=== PATIENT | female | born 1930 | race African-American/Black ===

== ENCOUNTER 2016-10-07 16:59 | Inpatient (IN) | payer MEDICARE, MEDICAID ==
[~2016-10-07] VITALS: Ht 154.9 cm; Wt 68.5 kg
[~2016-10-07 16:59] MED LIST: ACTOS15 MG PO; ALLOPURINOL300 MG PO; ASPIRIN EC81 MG PO; CELEBREX200 MG PO; CEPHALEXIN500 MG PO; COREG25 MG PO; COZAAR25 MG PO; CRESTOR10 MG PO; FERROUS SULF325 M2 PO; FOSAMAX70 MG PO; HYDROCHLORO25 MG/TAB PO; KEFLEX500 M1 PO; LASIX 40 MG40 MG/TAB PO; LIPITOR40 MG PO; METHIMAZOLE5 MG PO; METO50TA52 PO; MUCINEX600 MG PO; OXYBUTYNIN5 M1 PO; ROBITUSSIN200 MG/10 PO; SPIRONOLACTONE25 MG PO; SYNTHROID PO; ULTRAM50 M1 PO; VITAMIN B-12500 MCG PO; VITAMIN D31000 UNI1 PO; [UNRECOGNIZED DRUG - REMARK]
--- NOTE | 2016-10-07 17:12 | NUR ---
PT TO ROOM FOR TREATMENT VIA EMS
--- NOTE | 2016-10-07 18:11 | NUR ---
FAMILY AT BEDSIDE. PT W/HYPOTENSION W/ELEVATED HOB. PT SUPINE. IV SITE HEALTHY. AWAITING LAB RESULTS.
[2016-10-07 18:25] LABS: HEMATOCRIT 32.6 % (37.0-47.0); HEMOGLOBIN 10.1 g/dl (12.0-16.0); IMMATURE GRANULOCYTES 0.3 % (0.0-1.0); MEAN CELL VOLUME 97.3 fL CALC (80.0-100.0); MEAN CORPUSCULAR HGB 30.1 pG CALC (26.0-32.0); NEUT# 2.06 thou/uL (2.00-7.15); RED BLOOD COUNT 3.35 mill/uL (4.20-5.60); RED CELL DISTRI WIDTH 15.3 % (11.5-15.5)
[2016-10-07 18:43] LABS: PROTHROMBIN TIME 11.2 SECONDS (9.0-12.5)
[2016-10-07 18:46] LABS: ALBUMIN 3.5 g/dL (3.2-5.0); BILIRUBIN, TOTAL 0.7 mg/dL (0.0-1.4); CALCIUM 8.3 mg/dL (8.4-10.2); CREATININE 2.2 mg/dL (0.5-1.0); POTASSIUM 3.8 mmol/l (3.5-5.1); TOTAL PROTEIN 6.8 g/dL (6.3-8.2)
--- NOTE | 2016-10-07 18:50 | NUR ---
EMS IV OCCLUDED. REMOVED AND #22 STARTED IN RFA X 1 ATTEMPT. PT TOLERATED WELL.
--- NOTE | 2016-10-07 19:08 | NUR ---
REPORT PROVIDED TO RADHA RENTERIA. IV ABT INFUSING.
--- NOTE | 2016-10-07 19:10 | NUR ---
PT LAYING SUPINE IN BED. RESP EVEN AND UNLABORED. NO DISTRESS NOTED. DENIES PAIN/COMPLAINTS AT THIS TIME. PT A&O X 3. SKIN W/D. INFORMED PT AND FAMILY OF PLAN OF CARE AND CONTINUED WAIT TIME AND THEY VERBALIZED UNDERSTANDING. CALL LIGHT IN REACH.
--- NOTE | 2016-10-07 19:18 | NUR ---
PT CLEANED OF STOOL AND URINARY INCONTINENCE. STRAIGHT CATH'D FOR UA. PT TOLERATED WELL.
--- NOTE | 2016-10-07 19:22 | NUR ---
MD BEDSIDE TO DISCUSS RESULTS AND PLAN OF CARE W/ PT AND FAMILY.
[2016-10-07] MEDS ORDERED: FUROSEMIDE40 MG PO (19:23)
[2016-10-07] MEDS ORDERED: LOSARTAN POT25 MG PO (19:24)
[2016-10-07] MEDS ORDERED: METHIMAZOLE5 MG PO (19:27)
[2016-10-07 19:33] LABS: URINE BILIRUBIN - DIPSTICK NEGATIVE (NEGATIVE); URINE BLOOD DIPSTICK TRACE-INTACT (NEGATIVE); URINE CLARITY SLIGHT CLOUDY; URINE COLOR YELLOW; URINE GLUCOSE - DIPSTICK NEGATIVE (NEGATIVE); URINE KETONE NEGATIVE (NEGATIVE); URINE LEUK ESTERASE NEGATIVE (NEGATIVE); URINE NITRITE - DIPSTICK NEGATIVE (Negative); URINE PH 5.5 (4.5-8.0); URINE PROTEIN - DIPSTICK 100 mg/dL (NEG-TRACE); URINE SPECIFIC GRAVITY 1.015; URINE UROBILINOGEN - DIPSTICK 0.2 E.U./dL (0.2)
[2016-10-07 19:41] LABS: URINE AMORPH SEDIMENT MANY hpf (NONE-FEW); URINE RBC 0-2 RBC/hpf (0-5); URINE SQUAMOUS EPITHELIAL CELL FEW EPI/hpf (0-FEW); URINE WBC 0-2 WBC/hpf (0-5)
--- NOTE | 2016-10-07 20:20 | NUR ---
PT CONTINUES RESTING IN BED W/ NO CHANGE IN ASSESSMENT. NO DISTRESS. VSS. CALL LIGHT IN REACH.
--- NOTE | 2016-10-07 21:08 | NUR ---
REPORT CALLED TO Long SCHULTZ RN MEDSURG.
--- NOTE | 2016-10-07 21:20 | NUR ---
Admission Note Report Given to: Long SCHULTZ RN Transported by: Wheelchair X Stretcher Transported with: Nurse X Transporter X Patent IV O2 X Chemical Etching Processor
--- NOTE | 2016-10-07 21:20 | NUR ---
PT. ARRIVED TO THE FLOOR VIA STRETCHER ACCOMPANIED BY SCHOOL PHOTOGRAPHER, PT. TRANSFERRED OVER TO BED WITH STAFF ASSIST. DAUGHTER IS ALONG WITH PT. ASSESMENT COMPLETED, PT. HAS SMALL OPEN AREA NOTED TO LEFT INNER BUTTOCK, PHOTO OBTAINED AND TO BE PLACED IN CHART. PT AND FAMILY UPDATED WITH POC. ENCOURAGED TO CALL FOR ANY NEEDS. CALL LIGHT IS IN REACH.
[2016-10-07 21:42] VITALS: BP 126/60
--- NOTE | 2016-10-07 21:58 | NUR ---
DR. HIGGINBOTHAM CALL FOR PT'S REQUEST FOR MEDICATION FOR CONGESTION. ALSO NOTIFIED HIM OF INCREASE IN LAST LACTIC ACID AND OF PTS WBC BEING 3.8,AND THAT PATIENT ALREADY RECEIVED BOLUS IN ER. NEW ORDER RECIEVED FOR ANOTHER LACTIC ACID TO BE OBTAINED, WILL CARRY OUT.
--- NOTE | 2016-10-07 23:02 | NUR ---
PT. GIVEN A SANDWICH AND CRACKERS PER PTS REQUEST. DAUGHTER NOTIFIED OF HOME MEDICATION NEEDING TO BE BROUGHT IN, VERBALIZES UNDERSTANDING. CALL LIGHT IS IN REACH.
[2016-10-08] VITALS (7 sets, daily range): BP systolic 111–136; BP diastolic 54–76
--- NOTE | 2016-10-08 01:30 | NUR ---
PT. RESTING IN BED WITH NO DISTRESS NOTED. DENIES NEEDS/PAIN. ENCOURAGED TO CALL FOR ANY NEEDS. CALL LIGHT IS IN REACH.
--- NOTE | 2016-10-08 05:06 | NUR ---
PT. RESTING IN BED WITH DAUGHTER IN AT BEDSIDE, DENIES NEEDS. ENCOURAGED TO CALL FOR ANY NEEDS. CALL LIGHT IS IN REACH.
--- NOTE | 2016-10-08 08:00 | NUR ---
ASSESSMENT IS COMPLETED: PT HAS BEEN COUGHING WITH WHITE PHLEGMN. IV SITE IS FREE FROM REDNESS OR EDEMA. TELE MONITOR IN PLACE. FAMILY IN THE ROOM. CONTINUE TO OBSERVE AND MONITOR.
[2016-10-08 10:51] LABS: HEMOGLOBIN 9.6 g/dl (12.0-16.0); IMMATURE GRANULOCYTES 0.3 % (0.0-1.0); MEAN CELL VOLUME 96.6 fL CALC (80.0-100.0); MEAN CORPUSCULAR HGB 29.9 pG CALC (26.0-32.0); NEUT# 1.95 thou/uL (2.00-7.15); RED BLOOD COUNT 3.21 mill/uL (4.20-5.60); RED CELL DISTRI WIDTH 15.3 % (11.5-15.5)
[2016-10-08 11:19] LABS: CREATININE 1.8 mg/dL (0.5-1.0); POTASSIUM 3.4 mmol/l (3.5-5.1)
--- NOTE | 2016-10-08 13:00 | NUR ---
PT AMBULATED FROM THE BATHROOM BACK TO BED, WITH NO DISTRESS NOTED. IV SITE IS FREE FROM REDNESS OR EDMEA.
--- NOTE | 2016-10-08 16:00 | NUR ---
PT IS RELAXING IN THE CHAIR., NO DISTRESS NOTED. IV SITE IS FREE FROM REDNESS OR EDEMA.
--- NOTE | 2016-10-08 19:33 | NUR ---
PT. RESTING IN BED WITH NO DISTRESS NOTED. DENIES PAIN. ASSESSMENT COMPLETED. IV SITE PATENT AND ORDERED NS INFUSING @50ML/HR. PT. THEN ASSISTE TO THE BATHROOM WITH MINIMAL ASSISTANCE. GAIT SLOW AND STEADY. PT. THEN ASSSISTED BACK INTO BED. CALL LIGHT IS IN REACH. BED ALARM IN PLACE FOR SAFETY.
--- NOTE | 2016-10-08 20:37 | NUR ---
PT. RESTING IN BED WITH NO DISTRESS NOTED. DAUGHTER IN AT BEDSIDE TO STAY THE NIGHT WITH PT. SCHED MEDS GIVEN. PO FLUIDS OFFERED. DENIES NEEDS AND VOICES NO CONCERNS. CALL LIGHT IS IN REACH .WILL CONTINUE TO MONITOR.
--- NOTE | 2016-10-08 23:04 | NUR ---
PT. RESTING IN BED WITH NO DISTRESS NOTED. DENIES NEEDS. DAUGHTER REMAINS AT BEDSIDE. CALL LIGHT IS IN REACH.
[2016-10-09 05:10] VITALS: BP 152/60
--- NOTE | 2016-10-09 05:23 | NUR ---
PT. RESTING IN BED WITH NO DISTRESS NOTED. FRESH WATER AND JUICE PROVIDED. DAUGHTER REMAINS AT BEDSIDE. NEW BAG OF ORDERED IVF HUNG. ENCOURAGED TO CALL FOR ANY NEEDS. CALL LIGHT IS IN REACH.
[2016-10-09 05:50] LABS: HEMATOCRIT 33.4 % (37.0-47.0); HEMOGLOBIN 10.5 g/dl (12.0-16.0); IMMATURE GRANULOCYTES 0.2 % (0.0-1.0); MEAN CELL VOLUME 95.4 fL CALC (80.0-100.0); MEAN CORPUSCULAR HGB CONC 31.4 g/L CALC (32.0-36.0); NEUT# 2.47 thou/uL (2.00-7.15); RED BLOOD COUNT 3.5 mill/uL (4.20-5.60); RED CELL DISTRI WIDTH 15.2 % (11.5-15.5)
[2016-10-09 06:02] LABS: CALCIUM 8.7 mg/dL (8.4-10.2); CREATININE 1.4 mg/dL (0.5-1.0)
--- NOTE | 2016-10-09 06:20 | NUR ---
PT. UP AT THE END OF THE BED UPON ENTERING THE ROOM. PT. ASSISTED TO THE BSC AND UP TO THE RECLINER. PT. REMINDED TO USE THE CALL LIGHT FOR ASSISTANCE OOB. CALL LIGHT IN REACH AND BED ALARM PLACED FOR SAFETY PRECAUTIONS. WILL CONTINUE TO MONITOR.
--- NOTE | 2016-10-09 07:37 | NUR ---
PHILIPPE INFORMED PT GOT UP AND TOOK HER IV OUT AND TELE MONITOR IS OFF. SHE WILL CALL HER SISTER TO COME AND SIT WITH MOTHER.
[2016-10-09 07:50] VITALS: BP 142/71
--- NOTE | 2016-10-09 07:50 | NUR ---
ASSESSMENT IS COMPLETED: PT CONTINUES TO BE REDIRECTED TO GO BACK TO THE CHAIR. WANTING HER FAMILY TO COME AND GET HER TO TAKE HER HOME. PT TOOK IV AND TELE MONITOR OFF.
--- NOTE | 2016-10-09 08:43 | NUR ---
PT IS CRYING "LORD HELP ME PLEASE". ENCOURAGING PT TO SIT BACK IN THE CHAIR TO WAIT FOR HER DAUGHTER TO COME, INSISTING ON HER SHOES." NO SHOES IN THE ROOM.
--- NOTE | 2016-10-09 08:57 | NUR ---
PT INSISTING ON FINDING HER PERSONAL ITEMS: SHOES POCKET BOOK AND KEYS". INFORMED THAT HER FAMILY TOOK THEM HOME.
--- NOTE | 2016-10-09 09:05 | NUR ---
IN TO VISIT WITH PT WILL TALK WITH FAMILY WHEN THEY COME .
[2016-10-09 09:13] VITALS: BP 142/71
--- NOTE | 2016-10-09 12:15 | NUR ---
PT IS SITTING UP IN THE CHAIR WAITING FOR FAMILY
--- NOTE | 2016-10-09 13:50 | NUR ---
DISCHARGE INSTRUCTIONS GIVEN TO FAMILY., VERBALIZED UNDERSTANDING. IV SITE ALREADY REMOVED FROM PT. CONITNUE TO OBSERVE AND MONITOR.
--- NOTE | 2016-10-09 13:55 | NUR ---
Discharge instructions given. Patient verbalizes understanding of same. Discharged in stable condition via Wheelchair to Home with family. All belongings sent with pt.
== END 2016-10-09 13:45 | disposition home health service (06) | DRG 315 ==
LOC: ENPENDDIS → ED 16:59 → MS2 20:03 → ED-I 20:05 → ED 20:05 → MS2 10-09 13:45
PROVIDERS: Emergency Medicine; Internal Medicine; ADMIT Internal Medicine; ATTEND Internal Medicine
DX: I95.9 Hypotension, unspecified (principal); N17.9 Acute kidney failure, unspecified; E11.22 Type 2 diabetes mellitus with diabetic chronic kidney disease; E86.0 Dehydration; E05.90 Thyrotoxicosis, unspecified without thyrotoxic crisis or storm; I25.10 Atherosclerotic heart disease of native coronary artery without angina pectoris; E78.5 Hyperlipidemia, unspecified; I12.9 Hypertensive chronic kidney disease with stage 1 through stage 4 chronic kidney disease, or unspecified chronic kidney disease; N18.3 Chronic kidney disease, stage 3 (moderate); G31.84 Mild cognitive impairment of uncertain or unknown etiology

== ENCOUNTER 2017-08-06 16:12 | Observation (INO) | payer MEDICARE, MEDICAID ==
[~2017-08-06] VITALS: Ht 154.9 cm; Wt 75.9 kg
[~2017-08-06 16:12] MED LIST changes: +FUROSEMIDE40 MG PO; +LOSARTAN POT25 MG PO
--- NOTE | 2017-08-06 16:29 | NUR ---
to room 15 via ems stretcher, pt sitting up in bed, alert and talking with staff.
[2017-08-06 17:00] LABS: HEMATOCRIT 29.1 % (37.0-47.0); IMMATURE GRANULOCYTES 0.2 % (0.0-1.0); MEAN CORPUSCULAR HGB 30.6 pG CALC (26.0-32.0); MEAN CORPUSCULAR HGB CONC 30.9 g/L CALC (32.0-36.0); NEUT# 4.56 thou/uL (2.00-7.15); RED BLOOD COUNT 2.94 mill/uL (4.20-5.60); RED CELL DISTRI WIDTH 15.1 % (11.5-15.5)
[2017-08-06 17:04] LABS: ANION GAP 16 (6-22 (CALC)); BUN 39 mg/dL (8-23); BUN/CREATININE RATIO 24 (12-20 (CALC)); CARBON DIOXIDE 18 mmol/l (22-30); CHLORIDE 112 mmol/l (95-108); CREATININE 1.6 mg/dL (0.5-1.0); GFR 31 ML/MIN (>=60 (CALC)); GFR FOR AFR.AMER. 37 ML/MIN (>=60 (CALC)); POTASSIUM 3.9 mmol/l (3.5-5.1); SODIUM 142 mmol/l (137-146)
--- NOTE | 2017-08-06 17:10 | NUR ---
NS 1000cc bolus infusing from fluids brought in by EMS.
--- NOTE | 2017-08-06 17:15 | NUR ---
VS STABLE, IVF BOLUS INFUSING, CALL MILLER WITHIN REACH
--- NOTE | 2017-08-06 17:51 | NUR ---
IVF BOLUS COMPLETE, IV ACCESS FLUSHED W/O INCIDENT, FAMILY MEMBER AT BEDSIDE, CALL MILLER WITHIN REACH
[2017-08-06 18:09] LABS: URINE BILIRUBIN - DIPSTICK NEGATIVE (NEGATIVE); URINE BLOOD DIPSTICK NEGATIVE (NEGATIVE); URINE COLOR YELLOW; URINE GLUCOSE - DIPSTICK NEGATIVE (NEGATIVE); URINE KETONE NEGATIVE (NEGATIVE); URINE LEUK ESTERASE NEGATIVE (NEGATIVE); URINE NITRITE - DIPSTICK NEGATIVE (Negative); URINE PROTEIN - DIPSTICK TRACE mg/dL (NEG-TRACE); URINE SPECIFIC GRAVITY 1.015; URINE UROBILINOGEN - DIPSTICK 0.2 E.U./dL (0.2)
[2017-08-06 18:12] LABS: URINE CLARITY CLEAR
--- NOTE | 2017-08-06 18:51 | NUR ---
PT RESTING VS STABLE, FAMILY MEMBER AT BEDSIDE, CALL MILLER WITHIN REACH
--- NOTE | 2017-08-06 19:21 | NUR ---
RESTING QUIETLY. NO COMPLAINTS. NEURO INTACT.
[2017-08-06 21:00] VITALS: BP 138/61
--- NOTE | 2017-08-06 21:30 | NUR ---
PT SITTING UP IN BED WATCHING TV. PT IS ALERT AND ORIENTED X3. PERRLA. RESP ARE EVEN AND UNLABORED. NO DISTRESS NOTED. LUNGS ARE CLEAR. HR REGULAR. NO EDEMA NOTED. PULSES PALPABLE THROUGHOUT. BS ACTIVE. #20 IN RAC FOUND LAYING BESIDE PT IN BED. CATH TIP INTACT. #22 PLACED IN LAC X2 ATTEMPTS. PT TOLERATED WELL. WILL CONTINUE TO MONITOR
--- NOTE | 2017-08-07 | NUR ---
PT RESTING IN BED WITH EYES CLOSED. AROUSES EASILY TO VERBAL STIMULI. RESP ARE EVEN AND UNLABORED. NO DISTRESS NOTED. VOICES NO COMPLAINTS AT THIS TIME. WILL CONTINUE TO MONITOR. DAUGHTER IN ROOM
[2017-08-07 00:27] VITALS: BP 152/71
--- NOTE | 2017-08-07 04:04 | NUR ---
PT RESTING IN BED WITH EYES CLOSED. AROUSES EASILY TO VERBAL STIMULI. RESP ARE EVEN AND UNLABORED. NO DISTRESS NOTED. DAUGHTER IN ROOM. WILL CONTINUE TO MONITOR
[2017-08-07 04:20] VITALS: BP 120/67
[2017-08-07 07:07] LABS: HEMOGLOBIN 9.1 g/dl (12.0-16.0); MEAN CELL VOLUME 98.3 fL CALC (80.0-100.0); MEAN CORPUSCULAR HGB 30.8 pG CALC (26.0-32.0); MEAN CORPUSCULAR HGB CONC 31.4 g/L CALC (32.0-36.0); RED BLOOD COUNT 2.95 mill/uL (4.20-5.60); RED CELL DISTRI WIDTH 15.1 % (11.5-15.5)
--- NOTE | 2017-08-07 07:13 | NUR ---
ASSISTED PT TO THE COMMODE AND INTO THE RECLINER, CALL LIGHT IN REACH.
[2017-08-07 07:20] VITALS: BP 141/70
[2017-08-07 07:20] LABS: CHOLESTEROL HDL RATIO 2.8 (<4.4 (CALC)); CREATININE 1.5 mg/dL (0.5-1.0); POTASSIUM 4.1 mmol/l (3.5-5.1)
[2017-08-07 09:27] LABS: BARBITURATES NEGATIVE (NEGATIVE); COCAINE NEGATIVE (NEGATIVE); METHADONE NEGATIVE (NEGATIVE); OXCYCODONE NEGATIVE (NEGATIVE); TETRAHYDROCANNABIONOL NEGATIVE (NEGATIVE); TRICYLIC ANTIDEPRESSANTS NEGATIVE (NEGATIVE)
--- NOTE | 2017-08-07 11:01 | NUR ---
PT.UPRIGHT IN RECLINER WITH TV ON AND A SMILE TO GREET ME WHEN I WALKED IN THE DOOR. PT.DENIES PAIN/N/V AT THIS TIME. SHE REPORTS BM THIS AM AND NO BURNING OR DIFFICULTY URINATING. PT. DID ASK "WHEN AM I GETTING OUT OF HERE?" pT.IS LOC TO SELF//LOCATION, BUT CONFUSED WHEN ASKED YEAR AND PRESIDENT. PT.MEDICATED WITH AM MEDICATIONS ORDERED AND REORIENTED TO CALL LIGHT.
[2017-08-07 11:23] VITALS: BP 153/64
[2017-08-07 15:11] VITALS: BP 122/64
== END 2017-08-07 16:20 | disposition home or self-care (01) ==
LOC: ED 16:12 → ED-I 16:51 → ED 18:52 → MS2 18:53
PROVIDERS: Family Medicine; ADMIT Internal Medicine; ATTEND Internal Medicine
PROC: 0T9B70Z Drainage of Bladder with Drainage Device, Via Natural or Artificial Opening (ICD-10-PCS; principal; 2017-08-06)
DX: R55 Syncope and collapse (principal); I13.0 Hypertensive heart and chronic kidney disease with heart failure and stage 1 through stage 4 chronic kidney disease, or unspecified chronic kidney disease; N18.3 Chronic kidney disease, stage 3 (moderate); I50.9 Heart failure, unspecified; E78.5 Hyperlipidemia, unspecified; E05.90 Thyrotoxicosis, unspecified without thyrotoxic crisis or storm; G31.84 Mild cognitive impairment of uncertain or unknown etiology; R00.1 Bradycardia, unspecified

== ENCOUNTER 2018-02-09 15:13 | Observation (INO) | payer MEDICARE, MEDICAID ==
[~2018-02-09] VITALS: Ht 154.9 cm; Wt 70.0 kg
--- NOTE | 2018-02-09 15:21 | NUR ---
PATIENT TO ROOM VIA WHEELCHAIR AND PHYSICIAN NOTIFIED OF PATIENT STATUS
--- NOTE | 2018-02-09 15:35 | NUR ---
PATIENT ALERT AND ORINETED TO SELF AND PLACE. REPORTS CHEST PAIN X1 DAY, STATES PAIN REACHED 6/10 ON PAIN SCALE INTERMITTANT. DENIES ANY CURRENT CHEST PAIN OR SOB. +1 EDEMA NOTED TO BILATERAL LOWER EXTERMITIES. PATIENT INFORMED OF PLAN OF CARE VERBAL UNDERSTANDING. DAUGHTER AT BEDSIDE.
[2018-02-09 15:41] LABS: HEMATOCRIT 33.4 % (37.0-47.0); HEMOGLOBIN 10.5 g/dl (12.0-16.0); IMMATURE GRANULOCYTES 0.4 % (0.0-5.0); MEAN CELL VOLUME 98.2 fL CALC (80.0-100.0); MEAN CORPUSCULAR HGB 30.9 pG CALC (26.0-32.0); MEAN CORPUSCULAR HGB CONC 31.4 g/L CALC (32.0-36.0); NEUT# 4.16 thou/uL (2.00-7.15); RED BLOOD COUNT 3.4 mill/uL (4.20-5.60)
[2018-02-09 15:59] LABS: ALBUMIN 3.8 g/dL (3.2-5.0); ALKALINE PHOSPHATASE 86 u/l (38-126); ANION GAP 18 (6-22 (CALC)); BILIRUBIN, TOTAL 0.5 mg/dL (0.0-1.4); BUN 50 mg/dL (8-23); BUN/CREATININE RATIO 24 (12-20 (CALC)); CARBON DIOXIDE 20 mmol/l (22-30); CHLORIDE 109 mmol/l (95-108); CREATININE 2.1 mg/dL (0.5-1.0); GFR 22 ML/MIN (>=60 (CALC)); GFR FOR AFR.AMER. 27 ML/MIN (>=60 (CALC)); SGOT/AST 23 u/l (9-36); SGPT/ALT 31 u/l (11-66); SODIUM 142 mmol/l (137-146)
[2018-02-09 16:00] LABS: POTASSIUM 5.1 mmol/l (3.5-5.1)
[2018-02-09 16:11] LABS: MYOGLOBIN 72 ng/mL (0 - 62)
--- NOTE | 2018-02-09 16:35 | NUR ---
LUNG SOUNDS CLEAR BILATERALLY.
--- NOTE | 2018-02-09 17:00 | NUR ---
PATIENT REPORTS NO CHEST PAIN AT THIS TIME. INFORMED OF URINE SAMPLE NEEDED, PLACED ON BEDPAN. CALL LIGHT GIVEN AND INFORMED TO CALL FOR ASSISTANCE OF BEDPAN, DAUGHTER AT BEDSIDE.
--- NOTE | 2018-02-09 17:20 | NUR ---
PATIENT CONTINUE TO BE ON BEDPAN, REQUEST TO HAVE MORE TIME ON BEDPAN BY PATIENT. WILL CONTIUE TO MONITOR.
--- NOTE | 2018-02-09 18:00 | NUR ---
AT BEDSIDE TO DISCUSS RESULTS WITH PATIENT. URINE OBTAINED VIA STRAIGHT CATH, PATIENT TOLERATED WELL.
--- NOTE | 2018-02-09 18:16 | NUR ---
REPORT CALLED TO CIERRA HUMPHRIES. WAITING ON FLOOR ORDERS.
[2018-02-09 18:22] LABS: URINE BILIRUBIN - DIPSTICK NEGATIVE (NEGATIVE); URINE BLOOD DIPSTICK NEGATIVE (NEGATIVE); URINE COLOR YELLOW; URINE GLUCOSE - DIPSTICK NEGATIVE (NEGATIVE); URINE KETONE NEGATIVE (NEGATIVE); URINE LEUK ESTERASE NEGATIVE (NEGATIVE); URINE NITRITE - DIPSTICK NEGATIVE (Negative); URINE PROTEIN - DIPSTICK NEGATIVE (NEG-TRACE); URINE SPECIFIC GRAVITY <=1.005; URINE UROBILINOGEN - DIPSTICK 0.2 E.U./dL (0.2)
[2018-02-09 18:24] LABS: URINE CLARITY CLEAR
--- NOTE | 2018-02-09 18:45 | NUR ---
PATIENT TRANSPORTED TO [facility] VIA STRETCHER WITH TELE IN PLACE. CIERRA HUMPHRIES AND RADHA SUMMERS INFORMED OF PATIENT ARRIVAL TO UNIT. CARE RELINQUISHED.
--- NOTE | 2018-02-09 18:50 | NUR ---
PT ARRIVED TO FLOOR VIA STRETCHER ACCOMPANIED BY ED NURSE. PT APPEARS TO BE IN STABLE CONDITION. DENIES ANY PAIN OR SOB AT THIS TIME. PT ORIENTED TO ROOM,CALL SYSTEM,LIGHTS, AND BED AT THIS TIME.
--- NOTE | 2018-02-09 19:48 | NUR ---
PT ASSESSED AND V/S OBTAINED. LUNG SOUNDS ARE CLEAR, PT HAS DRY HACKING NON-PRODUCTIVE COUGH. ABD IS SOFT NON-TENDER, EDEMA+1 TO LOWER EXT BILAT, LOC TO SELF, AND LOCATION. DOES NOT REMEMBER HEALTH HISTORY OR WHY SHE IS HERE. I REORIENTED PT TO CALL LIGHT MULTIPLE TIMES WHILE ASSESSING AND COMPLETING ADMISSION. BED ALARM PLACED DUE TO FORGETFULLNESS. I WILL CONTINUE TO MONITOR AND OBSERVE FOR NEED TO MOVE TO A CLOSER LOCATION.
[2018-02-09 19:52] VITALS: BP 144/72
--- NOTE | 2018-02-09 21:00 | NUR ---
PT IS ATTEMPTING TO CALL HER DAUGHTER, I ASSISTED HER TO USE THE PHONE. SHE WAS UNABLE TO GET THROUGH TO DAUGHTER. NO S/S OF DISTRESS NOTED. PT DENIES ANY PAIN/N/V/SOB AT THIS TIME. ASSISTED PT TO BSC AND BACK TO BED. BED ALARM PLACED FOR FORGETFULLNESS.
[2018-02-10 00:02] VITALS: BP 150/73
--- NOTE | 2018-02-10 00:05 | NUR ---
PT SET BED ALARM OFF, SHE WAS ATTEMPTING TO GET UP ON HER OWN TO BSC. PT REQUIRED 1X ASSISTANCE GETTING OUT OF BED AND IS VERY WEAK ON HER FEET. PT ASSISTED BACK TO BED AND REMINDED OF CALL LIGHT PLACED ON BSTABLE. BED ALARM ON PT. 300CC OF CLEAR YELLOW URINE EMPTIED FROM BSC.
--- NOTE | 2018-02-10 03:55 | NUR ---
PT APPEARS TO BE SLEEPING AT THIS TIME. NO S/S OF DISTRESS NOTED. CALL LIGHT AT BEDSIDE AND BED ALARM IN PLACE.
[2018-02-10 04:15] VITALS: BP 106/72
[2018-02-10 05:04] LABS: HEMATOCRIT 30.2 % (37.0-47.0); HEMOGLOBIN 9.5 g/dl (12.0-16.0); MEAN CELL VOLUME 96.8 fL CALC (80.0-100.0); MEAN CORPUSCULAR HGB 30.4 pG CALC (26.0-32.0); MEAN CORPUSCULAR HGB CONC 31.5 g/L CALC (32.0-36.0); RED BLOOD COUNT 3.12 mill/uL (4.20-5.60); RED CELL DISTRI WIDTH 14.7 % (11.5-15.5)
[2018-02-10 05:11] LABS: CREATININE 1.6 mg/dL (0.5-1.0); POTASSIUM 4.6 mmol/l (3.5-5.1)
--- NOTE | 2018-02-10 07:05 | NUR ---
REPORT RECEIVED FROM RADHA SUMMERS;PT APPEARS TO BE SLEEPING IN LEFT SIDE LAYING POSITION;RESPIRATIONS APPEAR EVEN AND UNLABORED ON RA;NO S/S OF DISTRESS NOTED;IV SITE PATENT INFUSING NS @ 100ML/HR;FALL PRECAUTIONS IN PLACE WITH BED IN THE LOWEST POSITION AND BED ALARM ON FOR PATIENT SAFETY;CALL LIGHT IN REACH;WILL CONTINUE TO MONITOR
[2018-02-10 08:14] VITALS: BP 127/75
--- NOTE | 2018-02-10 08:15 | NUR ---
PT OOB RESTING IN RECLINER;ALERT AND ORIENTED X3 WITH SLIGHT FORGETFULNESS NOTED,WILL RE-ORIENT ACCORDINGLY;VS OBTAINED AND ASSESSMENT COMPLETED;PT DENIES ANY CURRENT PAIN,PAIN SCALE AND REPORTING EDUCATED;PT EXPRESSES DESIRE TO GO HOME,PT POC DISCUSSED AND PT VERBALIZES UNDERSTANDING;RESPIRATIONS EVEN AND UNLABORED ON RA,CLEAR LUNG SOUNDS NOTED;ABDOMEN SOFT ON PALPATION AND ACTIVE IN ALL 4 QUADRANTS;WEAK PEDAL PULSES,+1 EDEMA NOTED TO BILATERAL ANKLES;ENCOURAGED ELEVATION;TELE MONITOR IN PLACE;#20G TO LEFT FOREARM INFUSING NS @ 100ML/HR WITH EASE,SITE APPEARS HEALTHY;PO FLUIDS ENCOURAGED;PT DENIES ANY ADDITIONAL NEEDS AT THIS TIME;ENCOURAGED TO CALL FOR ASSISTANCE IF NEEDED;FALL PRECAUTIONS IN PLACE WITH BED ALARM ON FOR PT SAFETY;CALL LIGHT IN REACH;WILL CONTINUE TO MONITOR
[2018-02-10 10:30] VITALS: BP 130/59
--- NOTE | 2018-02-10 11:30 | NUR ---
PT OOB RESTING IN RECLINER WITH FAMILY AT BEDSIDE;PT DENIES ANY CURRENT PAIN OR NEEDS;RESPIRATIONS EVEN AND UNLABORED ON RA;IV SITE TO LEFT FOREARM PATENT AND INFUSING NS WITH EASE;PT ASSISTED TO BEDSIDE COMMODE WITH 2 PERSON ASSIST;PT ENCOURAGED TO CALL FOR ASSISTANCE WHEN NEEDED;FALL PRECAUTIONS IN PLACE WITH BED ALARM ON FOR SAFETY CALL LIGHT IN REACH;WILL CONTINUE TO MONITOR
--- NOTE | 2018-02-10 13:26 | NUR ---
ALL DISCHARGE INFORMATION PROVIDED AT THIS TIME AND DISCUSSED WITH PT AND FAMILY MEMBER;PT DENIES ANY CURRENT NEEDS OR QUESTIONS;IV SITE REMOVED WITH CATHETER INTACT;WHEELCHAIR TO BE PROVIDED FOR DISCHARGE.
--- NOTE | 2018-02-10 13:46 | NUR ---
Discharge instructions given. Patient verbalizes understanding of same. Discharged in stable condition via Wheelchair to Home with family. All belongings sent with pt.
== END 2018-02-10 13:48 | disposition home health service (06) ==
LOC: ED 15:13 → ED-I 16:04 → ED 16:04 → ED-I 17:50 → ED 18:09 → MS2 18:10
PROVIDERS: Emergency Medicine; ADMIT Internal Medicine; ATTEND Internal Medicine
DX: N17.9 Acute kidney failure, unspecified (principal); E86.0 Dehydration; T50.2X5A Adverse effect of carbonic-anhydrase inhibitors, benzothiadiazides and other diuretics, initial encounter; I13.0 Hypertensive heart and chronic kidney disease with heart failure and stage 1 through stage 4 chronic kidney disease, or unspecified chronic kidney disease; I50.9 Heart failure, unspecified; N18.3 Chronic kidney disease, stage 3 (moderate); E78.5 Hyperlipidemia, unspecified; I25.10 Atherosclerotic heart disease of native coronary artery without angina pectoris; E05.90 Thyrotoxicosis, unspecified without thyrotoxic crisis or storm; G31.84 Mild cognitive impairment of uncertain or unknown etiology; R07.89 Other chest pain; R06.02 Shortness of breath

== ENCOUNTER 2018-03-18 16:10 | Emergency (ER) | payer MEDICARE, MEDICAID ==
[~2018-03-18] VITALS: Ht 154.9 cm; Wt 73.0 kg
[2018-03-18] MEDS ORDERED: MOTRIN400 MG PO (17:17)
[2018-03-18] MEDS ORDERED: VOLTAREN1%GEL TOP (17:17)
[2018-03-18] MEDS ORDERED: ASPERCREME LIDOCA41 TOP (17:17)
[2018-03-18 17:26] VITALS: BP 147/65
== END 2018-03-18 17:33 | disposition home or self-care (01) ==
LOC: ED 16:10
DX: S76.012A Strain of muscle, fascia and tendon of left hip, initial encounter (principal); I11.0 Hypertensive heart disease with heart failure; I50.9 Heart failure, unspecified; I25.10 Atherosclerotic heart disease of native coronary artery without angina pectoris; E78.5 Hyperlipidemia, unspecified; X58.XXXA Exposure to other specified factors, initial encounter

== ENCOUNTER → 2018-09-01 | Outpatient (REF) | payer MEDICARE ==
[~2018-09-01] MED LIST changes: +ALLOPURINOL100 MG PO; +AMOXICILLIN500 MG PO; +ASPERCREME LIDOCA41 TOP; -ASPIRIN EC81 MG PO; +ATORVASTATIN CA20 MG PO; +BAYER ASPIRIN E81 MG PO; +DITROPAN PO; +GABAPENTIN100 MG PO; +IPRATROPIUM BR0.02 % IN; +KLOR-CON 1010 MEQ PO; +MOTRIN400 MG PO; +SODIUM BICAR650 MG PO; +TESSALON PERLE100 MG PO; +VOLTAREN1%GEL TOP
== END | disposition home or self-care (01) ==
LOC: MAMMO 12:38
PROVIDERS: ATTEND Internal Medicine
DX: N63.21 Unspecified lump in the left breast, upper outer quadrant (principal)

== ENCOUNTER 2018-09-02 16:10 | Emergency (ER) | payer MEDICARE ==
[~2018-09-02] VITALS: Ht 154.9 cm; Wt 90.0 kg
[~2018-09-02 16:10] MED LIST changes: -ALLOPURINOL100 MG PO; -AMOXICILLIN500 MG PO; -ATORVASTATIN CA20 MG PO; -DITROPAN PO; -GABAPENTIN100 MG PO; -IPRATROPIUM BR0.02 % IN; -KLOR-CON 1010 MEQ PO; -SODIUM BICAR650 MG PO; -TESSALON PERLE100 MG PO
[2018-09-02] MEDS ORDERED: GABAPENTIN100 MG PO (17:36)
[2018-09-02] MEDS ORDERED: ATORVASTATIN CA20 MG PO (17:37)
[2018-09-02] MEDS ORDERED: ALLOPURINOL100 MG PO (17:37)
[2018-09-02] MEDS ORDERED: KLOR-CON 1010 MEQ PO (17:38)
[2018-09-02] MEDS ORDERED: DITROPAN PO (17:39)
[2018-09-02] MEDS ORDERED: SODIUM BICAR650 MG PO (17:39)
[2018-09-02 17:45] VITALS: BP 139/69
== END 2018-09-02 17:45 | disposition home or self-care (01) ==
LOC: ED 16:10
DX: M15.0 Primary generalized (osteo)arthritis (principal); I11.0 Hypertensive heart disease with heart failure; I50.9 Heart failure, unspecified; I25.10 Atherosclerotic heart disease of native coronary artery without angina pectoris; E78.5 Hyperlipidemia, unspecified

== ENCOUNTER 2018-09-18 11:40 | Emergency (ER) | payer MEDICARE ==
[~2018-09-18] VITALS: Ht 154.9 cm; Wt 90.0 kg
[~2018-09-18 11:40] MED LIST changes: +ALLOPURINOL100 MG PO; +ATORVASTATIN CA20 MG PO; +DITROPAN PO; +GABAPENTIN100 MG PO; +KLOR-CON 1010 MEQ PO; +SODIUM BICAR650 MG PO
[2018-09-18 12:22] LABS: HEMOGLOBIN 9.7 g/dl (12.0-16.0); IMMATURE GRANULOCYTES 0.1 % (0.0-5.0); MEAN CELL VOLUME 101.6 fL CALC (80.0-100.0); MEAN CORPUSCULAR HGB 30.8 pG CALC (26.0-32.0); MEAN CORPUSCULAR HGB CONC 30.3 g/L CALC (32.0-36.0); NEUT# 5.42 thou/uL (2.00-7.15); RED BLOOD COUNT 3.15 mill/uL (4.20-5.60); RED CELL DISTRI WIDTH 15.1 % (11.5-15.5)
[2018-09-18 12:41] LABS: ALBUMIN 4.1 g/dL (3.2-5.0); BILIRUBIN, TOTAL 0.8 mg/dL (0.0-1.4); CREATININE 1.8 mg/dL (0.5-1.0); POTASSIUM 3.9 mmol/l (3.5-5.1); TOTAL PROTEIN 7.3 g/dL (6.3-8.2)
[2018-09-18 13:50] LABS: URINE BILIRUBIN - DIPSTICK NEGATIVE (NEGATIVE); URINE BLOOD DIPSTICK NEGATIVE (NEGATIVE); URINE COLOR YELLOW; URINE GLUCOSE - DIPSTICK NEGATIVE (NEGATIVE); URINE KETONE NEGATIVE (NEGATIVE); URINE LEUK ESTERASE NEGATIVE (NEGATIVE); URINE NITRITE - DIPSTICK NEGATIVE (Negative); URINE PROTEIN - DIPSTICK NEGATIVE (NEG-TRACE); URINE UROBILINOGEN - DIPSTICK 0.2 E.U./dL (0.2)
[2018-09-18 14:11] VITALS: BP 167/76
== END 2018-09-18 14:11 | disposition home or self-care (01) ==
LOC: ED 11:40
DX: R53.1 Weakness (principal); R51 Headache; I11.0 Hypertensive heart disease with heart failure; I50.9 Heart failure, unspecified; I25.10 Atherosclerotic heart disease of native coronary artery without angina pectoris

== ENCOUNTER 2018-09-29 13:03 | Emergency (ER) | payer MEDICARE ==
[~2018-09-29] VITALS: Ht 154.9 cm; Wt 80.0 kg
[2018-09-29] MEDS ORDERED: AMOXICILLIN500 MG PO (14:11)
[2018-09-29 15:03] VITALS: BP 134/77
== END 2018-09-29 15:03 | disposition home or self-care (01) ==
LOC: ED 13:03
DX: J06.9 Acute upper respiratory infection, unspecified (principal); I11.0 Hypertensive heart disease with heart failure; I50.9 Heart failure, unspecified; I25.10 Atherosclerotic heart disease of native coronary artery without angina pectoris

== ENCOUNTER 2018-10-01 15:43 | Emergency (ER) | payer MEDICARE ==
[~2018-10-01] VITALS: Ht 154.9 cm; Wt 75.0 kg
[~2018-10-01 15:43] MED LIST changes: +AMOXICILLIN500 MG PO
[2018-10-01] MEDS ORDERED: IPRATROPIUM BR0.02 % IN (16:42)
[2018-10-01] MEDS ORDERED: TESSALON PERLE100 MG PO (18:19)
[2018-10-01 18:25] VITALS: BP 101/59
== END 2018-10-01 18:27 | disposition home or self-care (01) ==
LOC: ED 15:43
DX: R05 Cough (principal); I10 Essential (primary) hypertension; I25.10 Atherosclerotic heart disease of native coronary artery without angina pectoris

== ENCOUNTER 2019-08-31 | Emergency (ER) | payer MEDICARE ==
[~2019-08-31] MED LIST changes: +CARVEDILOL25 MG PO; -DITROPAN PO; +DITROPAN5 MG/TA1 PO; -FUROSEMIDE40 MG PO; +IPRATROPIUM BR0.02 % IN; +LASIX 40 MG TAB40 MG PO; +TESSALON PERLE100 MG PO; +TRAMADOL HCL50 MG PO
== END 2019-08-31 18:57 | disposition home or self-care (01) ==
DX: M17.11 Unilateral primary osteoarthritis, right knee (principal); R05 Cough; I11.0 Hypertensive heart disease with heart failure; I50.9 Heart failure, unspecified; I25.10 Atherosclerotic heart disease of native coronary artery without angina pectoris

== ENCOUNTER 2019-09-21 | Emergency (ER) | payer MEDICARE ==
[2019-09-21 14:07] LABS: HEMATOCRIT 34.8 % (37.0-47.0); HEMOGLOBIN 10.9 g/dl (12.0-16.0); IMMATURE GRANULOCYTES 0.3 % (0.0-5.0); MEAN CELL VOLUME 99.4 fL CALC (80.0-100.0); MEAN CORPUSCULAR HGB 31.1 pG CALC (26.0-32.0); MEAN CORPUSCULAR HGB CONC 31.3 g/dL CAL (32.0-36.0); NEUT# 4.19 thou/uL (2.00-7.15); RED BLOOD COUNT 3.5 mill/uL (4.20-5.60); RED CELL DISTRI WIDTH 15.2 % (11.5-15.5)
[2019-09-21 14:09] LABS: ALBUMIN 3.9 g/dL (3.2-5.0); ALKALINE PHOSPHATASE 94 u/l (38-126); ANION GAP 12 (6-22 (CALC)); BILIRUBIN, TOTAL 0.7 mg/dL (0.0-1.4); BUN 32 mg/dL (8-23); BUN/CREATININE RATIO 19 (12-20 (CALC)); CARBON DIOXIDE 23 mmol/l (22-30); CHLORIDE 107 mmol/l (95-108); CREATININE 1.6 mg/dL (0.5-1.0); GFR 31 ML/MIN (>=60 (CALC)); GFR FOR AFR.AMER. 37 ML/MIN (>=60 (CALC)); POTASSIUM 4.2 mmol/l (3.5-5.1); SGOT/AST 32 u/l (9-36); SODIUM 138 mmol/l (137-146); TOTAL PROTEIN 7.1 g/dL (6.3-8.2)
[2019-09-21] MEDS ORDERED: FERR SULFATE325 MG PO (15:11)
[2019-09-21] MEDS ORDERED: DULCOLAX10 MG RE (15:14)
[2019-09-21] MEDS ORDERED: SENNA-TABS8.6 MG PO (15:14)
[2019-09-21] MEDS ORDERED: IPRATROPIUM BR0.02 % IN (15:16)
[2019-09-21 16:02] LABS: URINE BILIRUBIN - DIPSTICK NEGATIVE (NEGATIVE); URINE BLOOD DIPSTICK TRACE-INTACT (NEGATIVE); URINE COLOR YELLOW; URINE GLUCOSE - DIPSTICK NEGATIVE (NEGATIVE); URINE KETONE NEGATIVE (NEGATIVE); URINE LEUK ESTERASE NEGATIVE (NEGATIVE); URINE NITRITE - DIPSTICK NEGATIVE (Negative); URINE PH 6.5 (4.5-8.0); URINE PROTEIN - DIPSTICK NEGATIVE (NEG-TRACE); URINE SPECIFIC GRAVITY 1.015; URINE UROBILINOGEN - DIPSTICK 0.2 E.U./dL (0.2)
== END 2019-09-21 17:02 | disposition home or self-care (01) ==
PROVIDERS: Family Medicine
DX: R55 Syncope and collapse (principal); I11.0 Hypertensive heart disease with heart failure; I50.9 Heart failure, unspecified; I25.10 Atherosclerotic heart disease of native coronary artery without angina pectoris

== ENCOUNTER 2019-12-11 10:05 | Emergency (ER) | payer MEDICARE ==
[~2019-12-11 10:05] MED LIST changes: +DULCOLAX10 MG RE; +FERR SULFATE325 MG PO; +SENNA-TABS8.6 MG PO
[2019-12-11 12:38] VITALS: BP 168/73
== END 2019-12-11 12:03 | disposition home or self-care (01) ==
LOC: ED 10:05
DX: U07.1 COVID-19 (principal); I11.0 Hypertensive heart disease with heart failure; I50.9 Heart failure, unspecified; I25.10 Atherosclerotic heart disease of native coronary artery without angina pectoris

== ENCOUNTER 2021-05-15 20:45 | Emergency (ER) | payer MEDICARE ==
[~2021-05-15] VITALS: Ht 162.6 cm; Wt 81.0 kg
[2021-05-15 21:32] LABS: HEMATOCRIT 36.7 % (37.0-47.0); HEMOGLOBIN 11.4 g/dl (12.0-16.0); IMMATURE GRANULOCYTES 0.2 % (0.0-5.0); MEAN CELL VOLUME 97.3 fL CALC (80.0-100.0); MEAN CORPUSCULAR HGB 30.2 pG CALC (26.0-32.0); MEAN CORPUSCULAR HGB CONC 31.1 g/dL CAL (32.0-36.0); NEUT# 3.87 thou/uL (2.00-7.15); RED BLOOD COUNT 3.77 mill/uL (4.20-5.60)
[2021-05-15 21:41] LABS: ALBUMIN 4.1 g/dL (3.2-5.0); ALKALINE PHOSPHATASE 89 u/l (38-126); ANION GAP 13 (6-22 (CALC)); BILIRUBIN, TOTAL 0.8 mg/dL (0.0-1.4); BUN 29 mg/dL (8-23); BUN/CREATININE RATIO 13 (12-20 (CALC)); CARBON DIOXIDE 24 mmol/l (22-30); CHLORIDE 105 mmol/l (95-108); CREATININE 2.1 mg/dL (0.5-1.0); GFR 22 ML/MIN (>=60 (CALC)); GFR FOR AFR.AMER. 27 ML/MIN (>=60 (CALC)); SGOT/AST 34 u/l (9-36); SODIUM 137 mmol/l (137-146); TOTAL PROTEIN 7.6 g/dL (6.3-8.2)
[2021-05-15 21:44] LABS: POTASSIUM 5.3 mmol/l (3.5-5.1)
[2021-05-15 21:51] LABS: MYOGLOBIN 70 ng/mL (0 - 62)
[2021-05-15 22:59] LABS: URINE BILIRUBIN - DIPSTICK NEGATIVE (NEGATIVE); URINE BLOOD DIPSTICK SMALL (NEGATIVE); URINE COLOR YELLOW; URINE GLUCOSE - DIPSTICK NEGATIVE (NEGATIVE); URINE KETONE NEGATIVE (NEGATIVE); URINE LEUK ESTERASE NEGATIVE (NEGATIVE); URINE PH 6.5 (4.5-8.0); URINE PROTEIN - DIPSTICK 30 mg/dL (NEG-TRACE); URINE UROBILINOGEN - DIPSTICK 0.2 E.U./dL (0.2)
[2021-05-15 23:03] LABS: URINE NITRITE - DIPSTICK NEGATIVE (Negative)
[2021-05-15 23:04] LABS: URINE SQUAMOUS EPITHELIAL CELL FEW EPI/hpf (0-FEW); URINE WBC 0-2 WBC/hpf (0-5)
[2021-05-15 23:59] VITALS: BP 152/80
== END 2021-05-15 23:54 | disposition home or self-care (01) ==
LOC: ED 20:45
PROVIDERS: Emergency Medicine
DX: R53.1 Weakness (principal); I11.0 Hypertensive heart disease with heart failure; I50.9 Heart failure, unspecified; Z85.3 Personal history of malignant neoplasm of breast; Z20.822 Contact with and (suspected) exposure to COVID-19

== ENCOUNTER 2021-12-13 09:42 | Emergency (ER) | payer MEDICARE ==
[2021-12-13] VITALS (12 sets, daily range): BP systolic 135–184; BP diastolic 67–85
[~2021-12-13] VITALS: Ht 162.6 cm; Wt 115.0 kg
[2021-12-13] MEDS ORDERED: SINGULAIR10 MG PO (10:21)
[2021-12-13] MEDS ORDERED: OMEPRAZOLE DR40 MG (10:22)
[2021-12-13 11:14] LABS: HEMATOCRIT 37.4 % (37.0-47.0); HEMOGLOBIN 11.2 g/dl (12.0-16.0); IMMATURE GRANULOCYTES 0.3 % (0.0-5.0); MEAN CELL VOLUME 97.7 fL CALC (80.0-100.0); MEAN CORPUSCULAR HGB 29.2 pG CALC (26.0-32.0); MEAN CORPUSCULAR HGB CONC 29.9 g/dL CAL (32.0-36.0); NEUT# 4.54 thou/uL (2.00-7.15); RED BLOOD COUNT 3.83 mill/uL (4.20-5.60); RED CELL DISTRI WIDTH 13.5 % (11.5-15.5)
[2021-12-13 11:23] LABS: URINE BILIRUBIN - DIPSTICK NEGATIVE (NEGATIVE); URINE BLOOD DIPSTICK TRACE-INTACT (NEGATIVE); URINE COLOR YELLOW; URINE GLUCOSE - DIPSTICK NEGATIVE (NEGATIVE); URINE KETONE NEGATIVE (NEGATIVE); URINE LEUK ESTERASE NEGATIVE (NEGATIVE); URINE SPECIFIC GRAVITY 1.015; URINE UROBILINOGEN - DIPSTICK 0.2 E.U./dL (0.2)
[2021-12-13 11:29] LABS: ALBUMIN 3.7 g/dL (3.2-5.0); CREATININE 1.8 mg/dL (0.5-1.0); POTASSIUM 4.3 mmol/l (3.5-5.1)
[2021-12-13 11:31] LABS: BILIRUBIN, TOTAL 0.4 mg/dL (0.0-1.4)
[2021-12-13 11:36] LABS: ACT PARTIAL THROMBO TIME 25.4 SECONDS (20.0-32.5); PROTHROMBIN TIME 10.5 SECONDS (9.0-12.5)
[2021-12-13 11:40] LABS: URINE NITRITE - DIPSTICK NEGATIVE (Negative); URINE PROTEIN - DIPSTICK Trace mg/dL (NEG-TRACE)
[2021-12-13] MEDS ORDERED: PAXLOVID PO (13:06)
== END 2021-12-13 13:43 | disposition home or self-care (01) ==
LOC: ED 09:42
DX: U07.1 COVID-19 (principal)

== ENCOUNTER 2022-09-03 21:33 | Emergency (ER) | payer MEDICARE ==
[~2022-09-03] VITALS: Ht 162.6 cm; Wt 90.7 kg
[~2022-09-03 21:33] MED LIST changes: +OMEPRAZOLE DR40 MG; +PAXLOVID PO; +SINGULAIR10 MG PO
[2022-09-03 23:54] VITALS: BP 200/94
[2022-09-04 00:01] VITALS: BP 188/91
[2022-09-04 00:17] VITALS: BP 178/92
[2022-09-04 00:31] VITALS: BP 181/85
[2022-09-04 00:46] VITALS: BP 181/76
[2022-09-04 00:48] VITALS: BP 181/76
[2022-09-04] MEDS ORDERED: CEPHALEXIN500 M1 PO (00:52)
== END 2022-09-04 01:20 | disposition home or self-care (01) ==
LOC: ED 21:33
PROC: 0HQBXZZ Repair Right Upper Arm Skin, External Approach (ICD-10-PCS; principal; 2022-09-04)
DX: S41.111A Laceration without foreign body of right upper arm, initial encounter (principal); I10 Essential (primary) hypertension; I11.0 Hypertensive heart disease with heart failure; I50.9 Heart failure, unspecified; I25.10 Atherosclerotic heart disease of native coronary artery without angina pectoris; E78.5 Hyperlipidemia, unspecified; W01.198A Fall on same level from slipping, tripping and stumbling with subsequent striking against other object, initial encounter; Y92.009 Unspecified place in unspecified non-institutional (private) residence as the place of occurrence of the external cause